=== PATIENT | male | born 1975 | race Caucasian/White ===

== ENCOUNTER 2017-02-09 17:49 | Emergency (ER) | payer BC ==
[~2017-02-09] VITALS: Ht 195.6 cm; Wt 102.7 kg
[2017-02-09 17:56] VITALS: TEMP 36.9; Ht 195.6 cm; Wt 102.7 kg
[2017-02-09] MEDS ORDERED: SODIUM CHLORIDE 0.9% 1000ML 1,000 ML IV STA (18:08)
[2017-02-09] MEDS ORDERED: ACETAMINOPHEN 500 MG TAB PO STA (18:08)
--- NOTE | 2017-02-09 18:13 | EMERGENCY ROOM VISIT NOTE ---
History Report prepared by Scribe: Birdie Tucker Under the Supervision of: Dr. Rufus Menendez M.D. First contact with patient: 18:01 Chief Complaint: CHEST PAIN Stated Complaint: BACK PAIN, CHEST PAIN- FM HX CARDIAC Nursing Triage Summary: family history of aorta rupture. pateint was checked with ulatrasound and stress test and told he was fine. but he started with upper thorasic pain with shorntess of breath today at 230 and feared he had a tear in the aorta so he came to be evaluted History of Present Illness The patient is a 41 year old male who presents to the Emergency Room with complaints of persistent back pain since 0230 this morning. He rates his pain as a 5/10 in severity. Inspiration and movement worsens his discomfort. He states states he became concerned his pain was cardiac in nature as he has a family history of aortic aneurysm, so he came to the ED. His Father was 65 when he of aortic aneurysm and his Grandmother was 75 when she of an aneurysm. The patient did undergo ultrasound testing for aneurysm approximately 3 years ago and states it came back unremarkable. The pain has also caused him to feel short of breath. He notes he has a history of arthritis in 4 vertebra in his back. He has also experienced GERD in the past. The patient admits to "hauling around wood" yesterday. He did not do anything strenuous in nature today. He denies any recent fevers, chills, cough or congestion, chest pain, nausea, vomiting, diarrhea or pain or swelling in the legs. Source of History: patient Onset: 229 this morning Position: back Symptom Intensity: 5/10 Timing: other (persistent) Modifying Factors (Worsening): breathing (inspiration), movement Associated Symptoms: + SOB, No chest pain, No nausea, No vomiting Review of Systems See HPI for pertinent positives and negatives. A total of ten systems were reviewed and were otherwise negative. Past Medical & Surgical Medical Problems: (1) GERD (gastroesophageal reflux disease) (2) History of concussion Social History Smoking Status: Never Smoker Alcohol Use: occasionally Drug Use: none Marital Status: Housing Status: lives with family Occupation Status: employed Current/Historical Medications Scheduled PRN Ibuprofen Tab (Motrin), 800 MG PO Q8H PRN for Pain Allergies Coded Allergies: No Known Allergies (Unverified , 1/2/18) Physical Exam Vital Signs Date Time Temp Pulse Resp B/P (MAP) Pulse Ox O2 Delivery O2 Flow Rate FiO2 02/09/17 21:43 76 18 142/92 98 Room Air 02/09/17 19:53 76 18 137/91 97 Room Air 02/09/17 18:32 81 02/09/17 18:27 98 Room Air 02/09/17 18:27 Room Air 02/09/17 18:27 79 18 153/94 98 Room Air 02/09/17 17:56 36.9 84 20 166/99 97 Room Air Physical Exam GENERAL: Awake, alert, well-appearing, in no distress HENT: Normocephalic, atraumatic. Oropharynx unremarkable. EYES: Normal conjunctiva. Sclera non-icteric. NECK: Supple. No nuchal rigidity. FROM. No JVD. RESPIRATORY: Clear to auscultation. CARDIAC: Regular rate, normal rhythm. Extremities warm and well perfused. Pulses equal. ABDOMEN: Soft, non-distended. No tenderness to palpation. No rebound or guarding. No masses. RECTAL: Deferred. MUSCULOSKELETAL: Chest examination reveals no tenderness. Mild tenderness to the anterior lateral left chest wall, extending to the posterior lateral chest wall. No joint edema. LOWER EXTREMITIES: Calves are equal size bilaterally and non-tender. No edema. No discoloration. NEURO: Normal sensorium. No sensory or motor deficits noted. SKIN: No rash or jaundice noted. Medical Decision & Procedures ER Provider Diagnostic Interpretation: Radiology results as stated below per my review and radiologist interpretation: CHEST ONE VIEW PORTABLE CLINICAL HISTORY: CHEST PAIN dyspnea COMPARISON STUDY: No previous studies for comparison. FINDINGS: The bones soft tissues and hemidiaphragms are normal. The cardiomediastinal silhouette is normal. The lungs are clear. The pulmonary vasculature is normal. IMPRESSION: Negative chest. The above report was generated using voice recognition software. It may contain grammatical, syntax or spelling errors. Electronically signed by: Amado Paulson M.D. 02/09/2017 6:37 PM CHEST COMBO ANGIO DISSECTION, ANGIO ABD/PELVIS WITH CONTRAST HISTORY: 41 years-old male presents with acute chest and back pain. Clinical concern for possible aortic pathology COMPARISON: Portable chest radiograph of same day TECHNIQUE: CTA of the chest, abdomen and pelvis was obtained following the intravenous administration of 116 mL Optiray 320. Noncontrast images of the chest also obtained. 3-D coronal and sagittal MIPS were obtained from the axial data set and were submitted for review. All measurements were obtained according to NASCET criteria. A dose lowering technique was used consistent with the principals of LIOR. FINDINGS: CTA CHEST: Heart is normal in size without pericardial effusion. Thoracic aorta is normal in course and caliber without aneurysm or dissection. Imaged proximal great vessels appear to be patent. The opacified pulmonary arterial tree is also unremarkable. The precontrast images of the chest demonstrate no aortic intramural hematoma. CT CHEST: Homogeneous thyroid. No pathologic-appearing adenopathy of the chest. There is no pneumothorax, pleural effusion, focal airspace consolidation or overt pulmonary edema. Bibasilar groundglass opacities suggest atelectasis. Central airways are patent. Soft tissues of the chest are unremarkable. Mild symmetric bilateral gynecomastia. Bones of the chest appear intact. No significant degenerative changes. CTA ABDOMEN/PELVIS: There is no aortic aneurysm or dissection. The celiac trunk, superior and inferior mesenteric arteries are widely patent and within normal limits. No significant atherosclerotic vascular disease. Bilateral renal arteries are patent. The iliac arteries, imaged common femoral, profunda femoris and superficial femoral arteries appear patent. CT ABDOMEN/PELVIS: The liver, gallbladder, spleen, pancreas and adrenal glands are within normal limits. Bilateral kidneys, ureters, prostate and urinary bladder are also within normal limits. No bulky retroperitoneal adenopathy. There is no bowel obstruction or focal bowel wall thickening. Nonspecific ovoid 1.2 cm calcified structure is noted anterior to the distal sigmoid. Minimal colonic diverticulosis without diverticulitis. Normal appendix. Soft tissues are unremarkable. Bones appear intact. IMPRESSION: 1. Normal CTA without evidence of aneurysm, high-grade stenosis, dissection or proximal branch occlusion. No significant atherosclerotic vascular disease. 2. No acute abnormality identified within the chest, abdomen or pelvis. The above report was generated using voice recognition software. It may contain grammatical, syntax or spelling errors. Electronically signed by: Ector Bronson M.D. 02/09/2017 9:00 PM Laboratory Results 02/09/17 18:25 Red Blood Count 4.96, Mean Corpuscular Volume 90.9, Mean Corpuscular Hemoglobin 32.7, Mean Corpuscular Hemoglobin Concent 35.9, Mean Platelet Volume 9.3, Neutrophils (%) (Auto) 44.3, Lymphocytes (%) (Auto) 38.6, Monocytes (%) (Auto) 13.6, Eosinophils (%) (Auto) 2.8, Basophils (%) (Auto) 0.6, Neutrophils # (Auto ) 3.13, Lymphocytes # (Auto) 2.73, Monocytes # (Auto) 0.96, Eosinophils # (Auto ) 0.20, Basophils # (Auto) 0.04 02/09/17 18:25 Test 02/09/17 18:25 White Blood Count 7.07 K/uL (4.8-10.8) Red Blood Count 4.96 M/uL (4.7-6.1) Hemoglobin 16.2 g/dL (14.0-18.0) Hematocrit 45.1 % (42-52) Mean Corpuscular Volume 90.9 fL (80-100) Mean Corpuscular Hemoglobin 32.7 pg (25-34) Mean Corpuscular Hemoglobin Concent 35.9 g/dl (32-36) Platelet Count 205 K/uL (130-400) Mean Platelet Volume 9.3 fL (7.4-10.4) Neutrophils (%) (Auto) 44.3 % Lymphocytes (%) (Auto) 38.6 % Monocytes (%) (Auto) 13.6 % Eosinophils (%) (Auto) 2.8 % Basophils (%) (Auto) 0.6 % Neutrophils # (Auto) 3.13 K/uL (1.4-6.5) Lymphocytes # (Auto) 2.73 K/uL (1.2-3.4) Monocytes # (Auto) 0.96 K/uL (0.11-0.59) Eosinophils # (Auto) 0.20 K/uL (0-0.5) Basophils # (Auto) 0.04 K/uL (0-0.2) RDW Standard Deviation 41.7 fL (36.4-46.3) RDW Coefficient of Variation 12.7 % (11.5-14.5) Immature Granulocyte % (Auto) 0.1 % Immature Granulocyte # (Auto) 0.01 K/uL (0.00-0.02) Anion Gap 5.0 mmol/L (3-11) Est Creatinine Clear Calc Drug Dose 120.1 ml/min Estimated GFR () 106.4 Estimated GFR (Non- 91.8 BUN/Creatinine Ratio 20.3 (10-20) Calcium Level 9.4 mg/dl (8.5-10.1) Total Bilirubin 0.4 mg/dl (0.2-1) Direct Bilirubin < 0.1 mg/dl (0-0.2) Aspartate Amino Transf (AST/SGOT) 24 U/L (15-37) Alanine Aminotransferase (ALT/SGPT) 64 U/L (12-78) Alkaline Phosphatase 72 U/L (45-117) Troponin I < 0.015 ng/ml (0-0.045) Total Protein 7.3 gm/dl (6.4-8.2) Albumin 3.9 gm/dl (3.4-5.0) Lipase 144 U/L (73-393) Laboratory results reviewed by me Medications Administered Medications (Trade) Dose Ordered Sig/Joey Route Start Time Stop Time Status Last Admin Dose Admin Sodium Chloride 1,000 ml @ 999 mls/hr Q1H1M STAT IV 02/09/17 18:08 02/09/17 19:08 DC 02/09/17 18:42 999 MLS/HR Acetaminophen (Tylenol Tab) 1,000 mg NOW STAT PO 02/09/17 18:08 02/09/17 18:17 DC 02/09/17 18:41 1,000 MG ECG Indication: back/shoulder pain Rate (beats per minute): 83 Rhythm: normal sinus Findings: no acute ischemic change, other (normal axis) ED Course 1805: The patient was evaluated in room C10. A complete history and physical exam was performed. 2119: I reevaluated the patient. He is feeling well and resting comfortably. I discussed his results and discharge instructions and he verbalized complete understanding and agreement. Medical Decision I reviewed the patient's past medical history, medications, and the nursing notes as described above. Differential Diagnoses considered include musculoskeletal strain, dissection, aneurysm, pneumonia, bronchitis, ACS, gastritis and reflux. The patient is a 41-year-old gentleman with a family history of aortic aneurysms with his father for manic ruptured aneurysm at 65 presents to emergency department with left back pain and left chest pain that began earlier today and his been constant per hpi. Arrival the patient is in no acute distress, afebrile with stable vital signs. He has mild tenderness to the anterior lateral chest wall extending to the posterior lateral chest wall. Pulses are equal bilaterally. Labs unremarkable including WBC and troponin within normal limits in the setting of constant pain. EKG unremarkable. Heart score is 1, low risk, ACS not likely. CTA negative for dissection or aneurysm. Some is most likely muscular in nature given the patient's recent physical activity. Plan for IB and pcp f/u. Findings and plan for follow-up reviewed with patient. Patient agreeable and d/c'd per discharge instructions. Medication Reconcilliation Current Medication List: was personally reviewed by me Blood Pressure Screening Patient's blood pressure: Normal blood pressure Blood pressure disposition: Did not require urgent referral Impression Primary Impression: Left sided chest pain Scribe Attestation The scribe's documentation has been prepared under my direction and personally reviewed by me in its entirety. I confirm that the note above accurately reflects all work, treatment, procedures, and medical decision making performed by me. Departure Information Dispostion Home / Self-Care Prescriptions Ibuprofen Tab (MOTRIN) 800 Mg Tab 800 MG PO Q8H Y for Pain for 7 Days, #21 TAB Prov: Rufus Menendez M.D. 02/09/17 Referrals Gary Puga M.D.([facility]) (PCP) Patient Instructions ED Chest Pain Costochondritis, My [facility] Additional Instructions Please follow up with your primary care physician in the next 1-3 days for re- evaluation. You likely have a muscle strain. Otherwise, your exam, EKG, chest xray, CT scan or your aorta and lab results did not show signs of an emergent condition at this time. Ibuprofen and Acetaminophen for pain as needed. Drink plenty of fluids to ensure hydration. Return to the emergency department for worsening symptoms as described in the accompanying instructions.
[2017-02-09 18:27] VITALS: O2SAT 98
[2017-02-09] MEDS ORDERED: OPTIRAY 320 IV PRN (18:30)
--- NOTE | 2017-02-09 18:38 | DIAGNOSTIC IMAGING REPORT ---
CHEST ONE VIEW PORTABLE CLINICAL HISTORY: CHEST PAIN dyspnea COMPARISON STUDY: No previous studies for comparison. FINDINGS: The bones soft tissues and hemidiaphragms are normal. The cardiomediastinal silhouette is normal. The lungs are clear. The pulmonary vasculature is normal. IMPRESSION: Negative chest. The above report was generated using voice recognition software. It may contain grammatical, syntax or spelling errors. Electronically signed by: Amado Paulson M.D. 02/09/2017 6:37 PM Dictated Date/Time: 02/09/2017 6:37 PM
[2017-02-09 18:40] LABS: BASO % 0.6 %; BASO ABS # 0.04 K/uL (0-0.2); EOS % 2.8 %; HEMATOCRIT 45.1 % (42-52); HEMOGLOBIN 16.2 g/dL (14.0-18.0); IG# 0.01 K/uL (0.00-0.02); LYMPH % 38.6 %; LYMPH ABS # 2.73 K/uL (1.2-3.4); MEAN CELL VOLUME 90.9 fL (80-100); MEAN CORPUSCULAR HEMOGLOBIN 32.7 pg (25-34); MEAN CORPUSCULAR HGB CONC 35.9 g/dl (32-36); MEAN PLATELET VOLUME 9.3 fL (7.4-10.4); MONO % 13.6 %; MONO ABS # 0.96 K/uL (0.11-0.59); NEUT % 44.3 %; NEUT ABS # 3.13 K/uL (1.4-6.5); PLATELET COUNT 205 K/uL (130-400); RED CELL DISTRIBUTION WIDTH CV 12.7 % (11.5-14.5); RED CELL DISTRIBUTION WIDTH SD 41.7 fL (36.4-46.3); WHITE BLOOD COUNT 7.07 K/uL (4.8-10.8)
[2017-02-09 19:07] LABS: ALBUMIN 3.9 gm/dl (3.4-5.0); ALKALINE PHOSPHATASE 72 U/L (45-117); ALT/SGPT 64 U/L (12-78); AST/SGOT 24 U/L (15-37); BLOOD UREA NITROGEN 20 mg/dl (7-18); CALCIUM 9.4 mg/dl (8.5-10.1); CARBON DIOXIDE 27 mmol/L (21-32); GLUCOSE 90 mg/dl (70-99); LIPASE 144 U/L (73-393); SODIUM 140 mmol/L (136-145); TOTAL PROTEIN 7.3 gm/dl (6.4-8.2)
--- NOTE | 2017-02-09 21:01 | DIAGNOSTIC IMAGING REPORT ---
CHEST COMBO ANGIO DISSECTION, ANGIO ABD/PELVIS WITH CONTRAST HISTORY: 41 years-old male presents with acute chest and back pain. Clinical concern for possible aortic pathology COMPARISON: Portable chest radiograph of same day TECHNIQUE: CTA of the chest, abdomen and pelvis was obtained following the intravenous administration of 116 mL Optiray 320. Noncontrast images of the chest also obtained. 3-D coronal and sagittal MIPS were obtained from the axial data set and were submitted for review. All measurements were obtained according to NASCET criteria. A dose lowering technique was used consistent with the principals of LIOR. FINDINGS: CTA CHEST: Heart is normal in size without pericardial effusion. Thoracic aorta is normal in course and caliber without aneurysm or dissection. Imaged proximal great vessels appear to be patent. The opacified pulmonary arterial tree is also unremarkable. The precontrast images of the chest demonstrate no aortic intramural hematoma. CT CHEST: Homogeneous thyroid. No pathologic-appearing adenopathy of the chest. There is no pneumothorax, pleural effusion, focal airspace consolidation or overt pulmonary edema. Bibasilar groundglass opacities suggest atelectasis. Central airways are patent. Soft tissues of the chest are unremarkable. Mild symmetric bilateral gynecomastia. Bones of the chest appear intact. No significant degenerative changes. CTA ABDOMEN/PELVIS: There is no aortic aneurysm or dissection. The celiac trunk, superior and inferior mesenteric arteries are widely patent and within normal limits. No significant atherosclerotic vascular disease. Bilateral renal arteries are patent. The iliac arteries, imaged common femoral, profunda femoris and superficial femoral arteries appear patent. CT ABDOMEN/PELVIS: The liver, gallbladder, spleen, pancreas and adrenal glands are within normal limits. Bilateral kidneys, ureters, prostate and urinary bladder are also within normal limits. No bulky retroperitoneal adenopathy. There is no bowel obstruction or focal bowel wall thickening. Nonspecific ovoid 1.2 cm calcified structure is noted anterior to the distal sigmoid. Minimal colonic diverticulosis without diverticulitis. Normal appendix. Soft tissues are unremarkable. Bones appear intact. IMPRESSION: 1. Normal CTA without evidence of aneurysm, high-grade stenosis, dissection or proximal branch occlusion. No significant atherosclerotic vascular disease. 2. No acute abnormality identified within the chest, abdomen or pelvis. The above report was generated using voice recognition software. It may contain grammatical, syntax or spelling errors. Electronically signed by: Ector Bronson M.D. 02/09/2017 9:00 PM Dictated Date/Time: 02/09/2017 8:47 PM
[2017-02-09] MEDS ORDERED: KETOROLAC TROMETHAMINE 30 MG/ML VIAL IV STA (21:17)
[2017-02-09] MEDS ORDERED: IBUP-1451 PO (21:18)
[2017-02-09 21:43] VITALS: BP 142/92; PULSE 76; O2SAT 98
== END 2017-02-09 22:11 | disposition home or self-care (01) ==
LOC: C.EDB 17:50 → C.EDC 22:11
DX: R07.9 Chest pain, unspecified (principal); K21.9 Gastro-esophageal reflux disease without esophagitis